=== PATIENT | female | born 1960 | race Caucasian/White ===

== ENCOUNTER 2018-04-24 20:24 | Emergency (ER) | payer MEDICAID ==
[~2018-04-24] VITALS: Ht 149.9 cm; Wt 54.4 kg
[2018-04-24 20:38] VITALS: BP_SYST 136
[2018-04-24] MEDS ORDERED: AMOX500C2 PO (20:49)
[2018-04-24] MEDS ORDERED: IBUP-1969 PO (20:50)
[2018-04-24] MEDS ORDERED: PROCHLORPERAZINE EDISYLATE 10 MG/2 ML VIAL IM ONE (21:00)
[2018-04-24] MEDS ORDERED: DIPHENHYDRAMINE INJ 50 MG/ML VIAL IM ONE (21:00)
[2018-04-24 22:23] VITALS: BP_SYST 132
== END 2018-04-24 22:23 | disposition home or self-care (01) ==
LOC: SED 20:24
DX: G44.209 Tension-type headache, unspecified, not intractable (principal); E78.00 Pure hypercholesterolemia, unspecified; Z98.51 Tubal ligation status
CPT/HCPCS: 96372; 99283; J0780; J1200